=== PATIENT | male | born 1975 | race Caucasian/White ===

== ENCOUNTER 2018-03-31 16:31 | Emergency (ER) | payer SELFPAY ==
[~2018-03-31] VITALS: Ht 165.1 cm; Wt 76.0 kg
[2018-03-31] MEDS ORDERED: HYDROCODONE/ACETAMINOPHEN 5/325MG TABLET PO ONE (18:00)
[2018-03-31] MEDS ORDERED: BACITRACIN ZINC OINT UDPKT TOP ONE (19:00)
[2018-03-31] MEDS ORDERED: TETANUS, DIPHTHERIA, PERTUSSIS VAC/PF 0.5ML (>7YR OLD) IM ONE (19:00)
[2018-03-31] MEDS ORDERED: KETOROLAC 30MG/ML VIAL IM ONE (20:00)
[2018-03-31 22:35] VITALS: BP 146/84
== END 2018-03-31 23:20 | disposition home or self-care (01) ==
LOC: ER 16:31
DX: S42.002A Fracture of unspecified part of left clavicle, initial encounter for closed fracture (principal); S80.12XA Contusion of left lower leg, initial encounter; Y93.55 Activity, bike riding; V13.4XXA Pedal cycle driver injured in collision with car, pick-up truck or van in traffic accident, initial encounter; X58.XXXA Exposure to other specified factors, initial encounter; Z23 Encounter for immunization; R03.0 Elevated blood-pressure reading, without diagnosis of hypertension; Y92.410 Unspecified street and highway as the place of occurrence of the external cause
CPT/HCPCS: 73030; 73562; 73590; 73700; 90471; 90715; 99284